=== PATIENT | male | born 1995 | race Caucasian/White ===

== ENCOUNTER 2025-02-12 08:14 | Inpatient (IN) | payer MEDICAID, OTHER ==
[~2025-02-12] VITALS: Ht 175.3 cm; Wt 72.6 kg
[2025-02-12 09:19] LABS: COVID AG,FIA SOURCE NASAL SWAB
[2025-02-12 09:38] LABS: PLATELET COUNT (AUTO) 332 K/uL (150-450); RED BLOOD CELL COUNT(AUTO) 5.26 MIL/uL (4.50-5.90); RED CELL DISTRIBUTION WIDTH 13.5 % (11.5-14.5); WHITE BLOOD COUNT (AUTO) 6.4 K/uL (4.5-11.0)
[2025-02-12 09:43] LABS: CALCIUM, TOTAL 9.2 mg/dL (8.8-10.5); CREATININE 0.82 mg/dL (0.60-1.30); GLOMERULAR FILTR. RATE CALC > 60 mL/min (>60); GLUCOSE,RANDOM 97 mg/dL (70-110); SODIUM SERUM 139 mmol/L (136-145); UREA NITROGEN, BLOOD 9 mg/dL (7-18)
[2025-02-12] MEDS ORDERED: ZOLPIDEM TARTRATE 10 MG TABLET PO PRN (10:00)
[2025-02-12 10:04] LABS: SARS-COV2 (COVID) ANTIGEN,FIA Negative (Negative)
[2025-02-12 11:37] LABS: APPEARANCE,URINE CLEAR (CLEAR); GLUCOSE, URINE (UA) NEGATIVE (NEGATIVE); LEUKOCYTE ESTERASE ,URINE NEGATIVE (NEGATIVE); NITRATE,URINE NEGATIVE (NEGATIVE); OCCULT BLOOD,URINE NEGATIVE (NEGATIVE); SPECIFIC GRAVITIY, URINE 1.014 (1.003-1.030)
[2025-02-12 11:44] LABS: ALCOHOL, URINE DRUG SCREEN NEGATIVE (NEGATIVE); AMPHET/METH SCREEN,URINE POSITIVE (NEGATIVE); BARBITURATE SCREEN, URINE NEGATIVE (NEGATIVE); CANNABINOID SCREEN,URINE NEGATIVE (NEGATIVE); COCAINE SCREEN,URINE NEGATIVE (NEGATIVE); METHADONE SCREEN, URINE NEGATIVE (NEGATIVE)
[2025-02-12 12:09] LABS: PH,URINE DRUG SCREEN 6.5 (5.0-8.0)
[2025-02-12] MEDS: NICOTINE 21 MG/24 HOUR PATCH TD ONE (12:09)
[2025-02-12 13:58] VITALS: O2SAT 96
[2025-02-12 14:30] VITALS: BP 143/83; PULSE 83; RESP 18; TEMP 97.6; O2SAT 98
[2025-02-12] MEDS: NICOTINE POLACRILEX 2 MG LOZENGE PO PRN (16:22)
[2025-02-12] MEDS: NICOTINE 21 MG/24 HOUR PATCH TD PRN (18:21)
[2025-02-12] MEDS ORDERED: INFLUENZA VIRUS VACCINE TVS (6MO+) 2025-26/PF 45 MCG/0.5 ML SYRINGE IM. ONE (19:00)
[2025-02-12 20:05] VITALS: BP 137/96; PULSE 57; RESP 16; TEMP 98.4; O2SAT 98
[2025-02-13 08:03] VITALS: BP 141/90; PULSE 88; RESP 18; TEMP 97.9; O2SAT 95
[2025-02-13] MEDS ORDERED: MAG HYDROX/ALUMINUM HYD/SIMETH ES 30 ML SUSPENSION UDCUP PO PRN (08:30)
[2025-02-13] MEDS ORDERED: PETROLATUM,WHITE 28 GM JELLY TP PRN (08:30)
[2025-02-13] MEDS ORDERED: ACETAMINOPHEN 325 MG TABLET PO PRN (08:30)
[2025-02-13] MEDS ORDERED: MAGNESIUM HYDROXIDE SUSPENSION 30 ML UDCUP PO PRN (08:30)
[2025-02-13] MEDS ORDERED: DOCUSATE SODIUM 100 MG CAPSULE PO PRN (08:30)
[2025-02-13] MEDS ORDERED: ONDANSETRON 4 MG TABLET PO PRN (08:30)
[2025-02-13] MEDS ORDERED: OMEPRAZOLE 20 MG CAPSULE PO PRN (08:30)
[2025-02-13] MEDS ORDERED: IBUPROFEN 600 MG TABLET PO PRN (08:30)
[2025-02-13] MEDS ORDERED: ALBUTEROL SULFATE HFA 90 MCG/PUFF 8 GM INHALER IH PRN (08:30)
[2025-02-13] MEDS ORDERED: LOPERAMIDE HCL 2 MG CAPSULE PO PRN (08:30)
[2025-02-13] MEDS ORDERED: BACITRACIN 28 GM OINTMENT TP PRN (08:30)
[2025-02-13] MEDS ORDERED: BENZOCAINE/MENTHOL [CEPACOL] LOZENGE PO PRN (08:30)
[2025-02-13 12:00] VITALS: BP 150/97; PULSE 72; RESP 18; O2SAT 99
[2025-02-13] MEDS ORDERED: MIRT-93 PO (17:19)
[2025-02-13] MEDS ORDERED: OLAN10TA74 PO (17:19)
[2025-02-13] MEDS ORDERED: SERT100T PO (17:19)
[2025-02-13 20:47] VITALS: BP 108/74; PULSE 60; RESP 14; TEMP 97.7; O2SAT 100
[2025-02-13] MEDS: MIRTAZAPINE 30 MG TABLET PO SCH (21:17)
[2025-02-14 07:20] VITALS: BP 125/63; PULSE 78; RESP 18; TEMP 97.1; O2SAT 100
[2025-02-14] MEDS: SERTRALINE HCL 100 MG TABLET PO SCH (08:48)
[2025-02-14 17:20] VITALS: BP 140/92; PULSE 86; RESP 16; TEMP 98.4; O2SAT 99
[2025-02-14 20:26] VITALS: BP 140/90; PULSE 98; RESP 18; TEMP 99.3; O2SAT 99
[2025-02-15 08:25] VITALS: BP 136/98; PULSE 83; RESP 18; TEMP 98.4; O2SAT 97
[2025-02-15] MEDS ORDERED: SERT-440 PO (10:18)
[2025-02-15] MEDS ORDERED: MIRT-149 PO (10:18)
[2025-02-15] MEDS ORDERED: OLAN10TA74 PO (10:18)
== END 2025-02-15 13:15 | disposition home or self-care (01) | DRG 753 ==
LOC: EMS 08:16 → B2S 12:31
PROVIDERS: ADMIT Psychiatry & Neurology Psychiatry; ATTEND Psychiatry & Neurology Psychiatry
PROC: GZHZZZZ Group Psychotherapy (ICD-10-PCS; principal; 2025-02-12)
PROC: GZ51ZZZ Individual Psychotherapy, Behavioral (ICD-10-PCS; 2025-02-12)
DX: F31.4 Bipolar disorder, current episode depressed, severe, without psychotic features (principal); R45.851 Suicidal ideations; F10.20 Alcohol dependence, uncomplicated; F15.20 Other stimulant dependence, uncomplicated; F41.9 Anxiety disorder, unspecified; G47.00 Insomnia, unspecified; K59.00 Constipation, unspecified; T42.4X2A Poisoning by benzodiazepines, intentional self-harm, initial encounter; Z20.822 Contact with and (suspected) exposure to COVID-19; F90.9 Attention-deficit hyperactivity disorder, unspecified type; Y90.0 Blood alcohol level of less than 20 mg/100 ml; Y92.89 Other specified places as the place of occurrence of the external cause; Z79.899 Other long term (current) drug therapy; Z91.51 Personal history of suicidal behavior; F44.81 Dissociative identity disorder
CPT/HCPCS: 80048; 80307; 81003; 85025; 99285; G0480